=== PATIENT | female | born 1985 | race Caucasian/White ===

== ENCOUNTER 2024-07-10 16:06 | Outpatient (CLI) | payer OTHER, SELFPAY ==
--- NOTE | ~2024-07-10 | XR_ITS ---
EXAMINATION: XR chest 2V Exam Date/Time: 07/10/2024 16:14 CDT HISTORY: Influenza A Comparison: 03/23/2019. RESULT: Lines, tubes, and devices: None. Lungs and pleura: Segmental airspace disease in the posterior aspect of the right lower lobe. Cardiomediastinal silhouette: Stable. Other: No acute osseous or upper abdominal finding. IMPRESSION: Segmental right lower lobe airspace disease concerning for pneumonia. Reviewed, dictated and finalized at location K.
== END 2024-07-10 16:07 | disposition home or self-care (01) ==
LOC: GOSHIMG 16:09
PROVIDERS: Visit Provider Internal Medicine
DX: J10.1 Influenza due to other identified influenza virus with other respiratory manifestations (principal); R91.8 Other nonspecific abnormal finding of lung field
CPT/HCPCS: 71046